=== PATIENT | female | born 1975 | race Caucasian/White ===

== ENCOUNTER 2017-08-21 09:48 | Emergency (ER) | payer MEDICAID ==
[2017-08-21] MEDS ORDERED: Butorphanol 2 MG/ML SDV IM ONE (10:42)
--- NOTE | 2017-08-21 11:16 | EDM.PDOC ---
ED HPI GENERAL MEDICAL PROBLEM - General Chief Complaint: Headache Stated Complaint: [id number] HEADACHE X 3 DAYS TO NECK Time Seen by Provider: 08/21/17 10:30 Source of Information: Reports: Patient, RN, RN Notes Reviewed History Limitations: Reports: No Limitations - History of Present Illness INITIAL COMMENTS - FREE TEXT/NARRATIVE: Pt to Er with c/o headache since Sunday. Patient states she has been under a lot of stress recently. She has been moving, in the process of a divorce, and has been sleeping on the floor. She states she has lost her BP meds in the move and has not taken them in about 1 week. Patient denies fever, chills, vomiting or diarrhea, chest pains, SOB, visual disturbances. Patient does admit to nausea at times. Patient rates pain 9/10. 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: Psychiatric History: Reports: Developmental Delay Hematologic History: Reports: Anemia - Past Surgical History Cardiovascular Surgical History: Reports: None Female Surgical History: Reports: Tubal Ligation Dermatological Surgical History: Reports: None Social & Family History - Family History HEENT: Reports: Hearing Impairment Cardiac: Reports: Hypertension Endocrine/Metabolic: Reports: Diabetes, type II Oncologic: Reports: Brain - Tobacco Use Smoking Status *Q: Never Smoker - Caffeine Use Caffeine Use: Reports: Coffee - Recreational Drug Use Recreational Drug Use: No ED ROS GENERAL - Review of Systems Review Of Systems: ROS reveals no pertinent complaints other than HPI. - Physical Exam Exam: See Below Exam Limited By: No Limitations General Appearance: Alert, WD/WN, No Apparent Distress Eye Exam: Bilateral Eye: EOMI, Normal Inspection Ears: Normal External Exam, Hearing Grossly Normal Nose: Normal Inspection Throat/Mouth: Normal Inspection, Normal Voice, No Airway Compromise Head Exam: Atraumatic, Normocephalic Neck: Normal Inspection, Supple, Non-Tender, Full Range of Motion Respiratory/Chest: No Respiratory Distress, Lungs Clear, Normal Breath Sounds, No Accessory Muscle Use, Chest Non-Tender Cardiovascular: Normal Peripheral Pulses, Regular Rate, Rhythm, No Edema, No Gallop, No JVD, No Murmur, No Rub GI/Abdominal: Normal Bowel Sounds, Soft, Non-Tender (Female) Exam: Deferred Rectal (Female) Exam: Deferred Neuro Exam (Abbreviated): Alert, Oriented Back Exam: Normal Inspection, Full Range of Motion Extremities: Normal Inspection, Normal Range of Motion, Non-Tender, No Pedal Edema, Normal Capillary Refill Psychiatric: Normal Affect, Normal Mood Skin Exam: Warm, Dry, Intact, Normal Color, No Rash Course - Vital Signs Last Recorded V/S: Last Vital Signs Temp 99.1 F 08/21/17 10:02 Pulse 92 08/21/17 10:45 Resp 16 08/21/17 10:45 BP 162/102 H 08/21/17 10:45 Pulse Ox 99 08/21/17 10:45 - Orders/Labs/Meds Meds: Medications Discontinued Medications Generic Name Dose Route Start Last Admin Trade Name Freq PRN Reason Stop Dose Admin Butorphanol Tartrate 2 mg 08/21/17 10:42 08/21/17 10:49 Stadol IM 08/21/17 10:43 2 mg ONETIME ONE Administration Departure - Departure Time of Disposition: 11:18 Disposition: Home, Self-Care 01 Condition: Fair Clinical Impression: Tension-type headache - Discharge Information *PRESCRIPTION DRUG MONITORING PROGRAM REVIEWED*: No *COPY OF PRESCRIPTION DRUG MONITORING REPORT IN PATIENT JOHN: No Instructions: Tension Headache, Adult, [id number] Additional Instructions: Drink plenty of water Take medications as prescribed May use Tylenol and/or ibuprofen as directed for pain Follow up with your primary care facility
[2017-08-21 11:19] VITALS: BP 171/102
== END 2017-08-21 11:23 | disposition home or self-care (01) ==
LOC: DL.ED 09:48
DX: G44.209 Tension-type headache, unspecified, not intractable (principal); I10 Essential (primary) hypertension
CPT/HCPCS: 96372; 99283; J0595

== ENCOUNTER 2018-05-20 02:57 | Emergency (ER) | payer MEDICAID ==
[2018-05-20 03:08] VITALS: BP 141/85
--- NOTE | 2018-05-20 03:24 | EDM.PDOC ---
ED HPI GENERAL MEDICAL PROBLEM - General Chief Complaint: ENT Problem Stated Complaint: THROAT PAIN [id number] Time Seen by Provider: 05/20/18 03:23 Source of Information: Reports: Patient History Limitations: Reports: No Limitations - History of Present Illness INITIAL COMMENTS - FREE TEXT/NARRATIVE: 3 days h/o sore throat. 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: Psychiatric History: Reports: Developmental Delay Hematologic History: Reports: Anemia - Past Surgical History Cardiovascular Surgical History: Reports: None Female Surgical History: Reports: Tubal Ligation Dermatological Surgical History: Reports: None Social & Family History - Family History HEENT: Reports: Hearing Impairment Cardiac: Reports: Hypertension Endocrine/Metabolic: Reports: Diabetes, type II Oncologic: Reports: Brain - Tobacco Use Smoking Status *Q: Never Smoker Second Hand Smoke Exposure: No - Caffeine Use Caffeine Use: Reports: Coffee - Recreational Drug Use Recreational Drug Use: No ED ROS ENT - Review of Systems Review Of Systems: ROS reveals no pertinent complaints other than HPI. ED EXAM, ENT - Physical Exam Exam: See Below Exam Limited By: No Limitations General Appearance: Alert, WD/WN, No Apparent Distress Ears: Hearing Grossly Normal Mouth/Throat: Pharyngeal Erythema, Tonsillar Erythema Head: Atraumatic Neck: Non-Tender, Full Range of Motion Respiratory/Chest: No Respiratory Distress Cardiovascular: Regular Rate, Rhythm GI/Abdominal: Soft, Non-Tender Neurological: Alert, Oriented, Normal Cognition, Normal Gait, No Motor/Sensory Deficits Psychiatric: Normal Affect, Normal Mood Skin: Warm, Dry, Normal Color Lymphatic: No Adenopathy Course - Vital Signs Last Recorded V/S: Last Vital Signs Temp 36.3 C 05/20/18 03:02 Pulse 87 05/20/18 03:02 Resp 14 05/20/18 03:02 BP 141/85 H 05/20/18 03:02 Pulse Ox 98 05/20/18 03:02 - Orders/Labs/Meds Orders: Active Orders 24 hr Category Date Time Status CULTURE STREP A CONFIRMATION [RM] Stat Lab 05/20/18 03:13 Results STREP SCRN A RAPID W CULT CONF [] Stat Lab 05/20/18 03:13 Results Amoxicillin [Amoxil] Med 05/20/18 03:37 Once 500 mg PO ONETIME ONE Medication Orders Amoxicillin (Amoxil) 500 mg PO ONETIME ONE Stop: 05/20/18 03:38 Meds: Medications Generic Name Dose Route Start Last Admin Trade Name Jostin PRN Reason Stop Dose Admin Amoxicillin 500 mg 05/20/18 03:37 Amoxil PO 05/20/18 03:38 ONETIME ONE - Re-Assessments/Exams Free Text/Narrative Re-Assessment/Exam: 05/20/18 03:38 results discussed with pt. Departure - Departure Time of Disposition: 03:38 Disposition: Home, Self-Care 01 Condition: Good Clinical Impression: Tonsillitis - Discharge Information Instructions: Tonsillitis, [id number] Forms: ED Department Discharge Additional Instructions: 1) avoid solid foods next 48 hours 2) have soft and liquids 3) take tylenol or motrin for fever 4) follow up at clinic rx given; amox 250mg tid x 30 - My Orders Last 24 Hours: My Active Orders 05/20/18 03:13 CULTURE STREP A CONFIRMATION [RM] Stat STREP SCRN A RAPID W CULT CONF [] Stat 05/20/18 03:37 Amoxicillin [Amoxil] 500 mg PO ONETIME ONE - Assessment/Plan Last 24 Hours: My Active Orders 05/20/18 03:13 CULTURE STREP A CONFIRMATION [RM] Stat STREP SCRN A RAPID W CULT CONF [RM] Stat 05/20/18 03:37 Amoxicillin [Amoxil] 500 mg PO ONETIME ONE
[2018-05-20] MEDS ORDERED: Amoxicillin 500 MG Cap PO ONE (03:37)
== END 2018-05-20 03:47 | disposition home or self-care (01) ==
LOC: DL.ED 02:57
DX: J03.90 Acute tonsillitis, unspecified (principal); I10 Essential (primary) hypertension; Z79.899 Other long term (current) drug therapy
CPT/HCPCS: 87081; 87430; 99283; A9270-GY

== ENCOUNTER 2018-06-26 09:31 | Emergency (ER) | payer MEDICAID ==
[2018-06-26 09:39] VITALS: BP 143/91
--- NOTE | 2018-06-26 10:48 | EDM.PDOC ---
ED HPI GENERAL MEDICAL PROBLEM - General Chief Complaint: ENT Problem Stated Complaint: HEADACHE,THROAT HURTS Time Seen by Provider: 06/26/18 10:42 Source of Information: Reports: Patient History Limitations: Reports: No Limitations - History of Present Illness INITIAL COMMENTS - FREE TEXT/NARRATIVE: This 42 yo female patient reports to the ED with a 2 day history of a sore throat and a 2 hour history of a headache. The patient reports she did take Tylenol, but continues to have a headache throughout the front of her head. The patient reports she has not had a clinic visit. 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: Acetaminophen Headache Pain Score (Numeric/FACES): 9 - Related Data Allergies Allergy/AdvReac Type Severity Reaction Status Date / Time No Known Allergies Allergy Verified 06/26/18 09:37 Home Meds: Home Meds Lisinopril/Hydrochlorothiazide [Lisinopril-Hctz 10-12.5 mg Tab] 1 each PO DAILY 03/23/16 [History] Past Medical History - Past Health History Medical/Surgical History: Denies Medical/Surgical History HEENT History: Reports: Impaired Vision Cardiovascular History: Reports: Hypertension Respiratory History: Reports: None Gastrointestinal History: Reports: None 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: Musculoskeletal History: Reports: None Neurological History: Reports: None Psychiatric History: Reports: Developmental Delay Endocrine/Metabolic History: Reports: None Hematologic History: Reports: Anemia Immunologic History: Reports: None Oncologic (Cancer) History: Reports: None Dermatologic History: Reports: None - Infectious Disease History Infectious Disease History: Reports: None - Past Surgical History Head Surgeries/Procedures: Reports: None Cardiovascular Surgical History: Reports: None Female Surgical History: Reports: Tubal Ligation Dermatological Surgical History: Reports: None Social & Family History - Family History HEENT: Reports: Hearing Impairment Cardiac: Reports: Hypertension Endocrine/Metabolic: Reports: Diabetes, type II Oncologic: Reports: Brain - Tobacco Use Smoking Status *Q: Never Smoker - Caffeine Use Caffeine Use: Reports: None - Recreational Drug Use Recreational Drug Use: No ED ROS ENT - Review of Systems Review Of Systems: ROS reveals no pertinent complaints other than HPI. ED EXAM, ENT - Physical Exam Exam: See Below Exam Limited By: No Limitations General Appearance: Alert, WD/WN, Mild Distress Eye Exam: Bilateral Eye: EOMI, Normal Inspection, PERRL Ears: Normal External Exam, Normal Canal, Hearing Grossly Normal, Normal TMs Nose: Normal Inspection, Normal Mucousa, No Blood Mouth/Throat: Normal Inspection, Normal Gums, Normal Lips, Normal Oropharynx, Normal Teeth Head: Atraumatic, Normocephalic. No: Facial Tenderness, Sinus Tenderness Neck: Normal Inspection, Supple, Non-Tender, Full Range of Motion Respiratory/Chest: No Respiratory Distress, Lungs Clear, Normal Breath Sounds, No Accessory Muscle Use, Chest Non-Tender Cardiovascular: Normal Peripheral Pulses, Regular Rate, Rhythm, No Edema, No Gallop, No JVD, No Murmur, No Rub GI/Abdominal: Normal Bowel Sounds, Soft, Non-Tender, No Organomegaly, No Distention, No Abnormal Bruit, No Mass (Female) Exam: Deferred Rectal (Female) Exam: Deferred Back: Normal Inspection, Full Range of Motion Extremities: Normal Inspection, Normal Range of Motion, Non-Tender, No Pedal Edema, Normal Capillary Refill Neurological: Alert, Oriented, CN II-XII Intact, Normal Cognition, Normal Gait, Normal Reflexes, No Motor/Sensory Deficits Psychiatric: Normal Affect, Normal Mood Skin: Warm, Dry, Intact, Normal Color, No Rash Lymphatic: No Adenopathy Course - Vital Signs Last Recorded V/S: Last Vital Signs Temp 36.6 C 06/26/18 09:37 Pulse 68 06/26/18 09:37 Resp 16 06/26/18 09:37 BP 143/91 H 06/26/18 09:37 Pulse Ox 100 06/26/18 09:37 - Orders/Labs/Meds Orders: Active Orders 24 hr Category Date Time Status CULTURE STREP A CONFIRMATION [] Stat Lab 06/26/18 09:34 Results STREP SCRN A RAPID W CULT CONF [] Stat Lab 06/26/18 09:34 Results Departure - Departure Time of Disposition: 10:49 Disposition: Home, Self-Care 01 Condition: Fair Clinical Impression: Head congestion - Discharge Information *PRESCRIPTION DRUG MONITORING PROGRAM REVIEWED*: Not Applicable *COPY OF PRESCRIPTION DRUG MONITORING REPORT IN PATIENT JOHN: Not Applicable Care Plan Goals: The patient was advised of the examination and lab results during the visit. The patient was encouraged to take [id number] medications for temporary symptom relief. If the patient has any additional symptoms or concerns, the patient should either return to the emergency department or visit her primary care facility. - My Orders Last 24 Hours: My Active Orders 06/26/18 09:34 CULTURE STREP A CONFIRMATION [RM] Stat STREP SCRN A RAPID W CULT CONF [RM] Stat - Assessment/Plan Last 24 Hours: My Active Orders 06/26/18 09:34 CULTURE STREP A CONFIRMATION [RM] Stat STREP SCRN A RAPID W CULT CONF [RM] Stat
== END 2018-06-26 10:54 | disposition home or self-care (01) ==
LOC: DL.ED 09:31
DX: R09.81 Nasal congestion (principal); I10 Essential (primary) hypertension; Z79.899 Other long term (current) drug therapy
CPT/HCPCS: 87081; 87430; 99283